=== PATIENT | female | born 1960 | race Caucasian/White ===

== ENCOUNTER 2025-01-27 15:10 | Outpatient (CLI) | payer BC | END 2025-01-27 15:11 | disposition home or self-care (01) | LOC: SCSMRI 15:10 | PROVIDERS: ATTEND Physician Assistant | DX: M25.551 Pain in right hip (principal); M25.80 Other specified joint disorders, unspecified joint; M16.0 Bilateral primary osteoarthritis of hip; M67.88 Other specified disorders of synovium and tendon, other site; R60.0 Localized edema; S86.811A Strain of other muscle(s) and tendon(s) at lower leg level, right leg, initial encounter; M70.61 Trochanteric bursitis, right hip ==